=== PATIENT | female | born 2000 | race Two or more races ===

== ENCOUNTER 2019-10-25 19:16 | Emergency (ER) | payer OTHER ==
[~2019-10-25] VITALS: Ht 160 cm; Wt 54.4 kg
[2019-10-25] MEDS ORDERED: PRENATALES (19:46)
[2019-10-25] MEDS ORDERED: [UNRECOGNIZED DRUG - OTHER] (19:47)
[2019-10-25] MEDS ORDERED: MESALAMINE (19:48)
== END 2019-10-26 12:31 | disposition home or self-care (01) ==
LOC: ER 19:16
DX: O21.0 Mild hyperemesis gravidarum (principal); Z34.01 Encounter for supervision of normal first pregnancy, first trimester

== ENCOUNTER 2019-11-30 20:58 | Emergency (ER) | payer OTHER ==
[~2019-11-30] VITALS: Ht 160 cm; Wt 51.7 kg
[~2019-11-30 20:58] MED LIST: MESALAMINE; PRENATALES; [UNRECOGNIZED DRUG - OTHER]
[2019-12-01] MEDS ORDERED: DUI500 PO (09:00)
[2019-12-01] MEDS ORDERED: ONDANSETRON HCL8 MG SL (09:00)
== END 2019-12-01 09:23 | disposition home or self-care (01) ==
LOC: ER 20:58
DX: O21.0 Mild hyperemesis gravidarum (principal); Z34.01 Encounter for supervision of normal first pregnancy, first trimester

== ENCOUNTER 2019-12-07 15:15 | Inpatient (IN) | payer OTHER ==
[~2019-12-07] VITALS: Ht 160 cm; Wt 49.4 kg
[~2019-12-07 15:15] MED LIST changes: +DUI500 PO; +ONDANSETRON HCL8 MG SL
== END 2019-12-10 15:17 | disposition home or self-care (01) | DRG 833 ==
LOC: ER 15:15 → OB/GYN 12-08 11:29 → SEC-K 12-08 11:29 → OB/GYN 12-08 13:49
PROVIDERS: ADMIT Obstetrics & Gynecology Obstetrics; ATTEND Obstetrics & Gynecology Obstetrics
PROC: 4A1HXCZ Monitoring of Products of Conception, Cardiac Rate, External Approach (ICD-10-PCS; principal; 2019-12-08)
DX: O26.891 Other specified pregnancy related conditions, first trimester (principal); K52.89 Other specified noninfective gastroenteritis and colitis; O23.41 Unspecified infection of urinary tract in pregnancy, first trimester; Z20.828 Contact with and (suspected) exposure to other viral communicable diseases

== ENCOUNTER 2024-04-30 16:59 | Emergency (ER) | payer OTHER ==
[~2024-04-30] VITALS: Ht 160 cm; Wt 63.5 kg
[2024-04-30] MEDS ORDERED: 0.9 % SODIUM CHLORIDE 1,000 ML IV STA (17:47)
[2024-04-30] MEDS ORDERED: ONDANSETRON HCL 2 MG/ML VIAL IV STA (17:48)
[2024-04-30] MEDS ORDERED: ONDANSETRON HCL 2 MG/ML VIAL ONE (17:51)
[2024-04-30] MEDS ORDERED: FAMOTIDINE/PF 20 MG/2 ML VIAL ONE (18:09)
[2024-04-30] MEDS ORDERED: FAMOTIDINE/PF 20 MG/2 ML VIAL IV PUSH ONE (18:15)
[2024-04-30 19:24] LABS: CALCIUM 8.9 mg/dL (8.5-10.1); CREATININE SERUM 0.53 mg/dL (0.55-1.02); GFR 141.72; POTASSIUM 3.85 mEq/L (3.5-5.1)
[2024-04-30 19:26] LABS: PH,URINE 6.5 (5.0-8.0); URINE APPEARANCE Cloudy; URINE BILIRRUBIN Negative (NEGATIVE); URINE BLOOD Negative; URINE COLOR Yellow; URINE GLUCOSE Negative (NEGATIVE); URINE LEUKOCYTE Moderate; URINE NITRATE Negative; URINE PROTEIN Negative (NEGATIVE)
[2024-04-30 19:30] LABS: URINE BACTERIA 6533.6 uL (0.0-1933); URINE EPITHELIAL CELLS 53.8 uL (0.0-38.8); URINE RBC 6.3 uL (0.0-20.8); URINE WBC 149.9 uL (0.0-23.2)
[2024-04-30 19:32] LABS: URINE CAST 0.44 uL (0.0-1.40); URINE KETONE 40 (NEGATIVE)
[2024-04-30 20:19] LABS: HEMATOCRIT 33.7 % (36.0-45.00); HEMOGLOBIN 11.3 g/dL (12.0-15.00); MEAN CELL VOLUME 83.1 fL (80.00-100.00); MEAN CORPUSCULAR HEMOGLOBIN 27.9 pg (27.00-32.0); MEAN CORPUSCULAR HGB CONC 33.5 g/dl (32.0-36.0); PLATELET COUNT 331 K/uL (150-450); RED BLOOD COUNT 4.05 M/uL (4.00-6.00); RED CELL DISTRIBUTION WIDTH 13.7 % (11.5-14.5)
== END 2024-04-30 21:31 | disposition home or self-care (01) ==
LOC: ER 17:01
PROVIDERS: Emergency Medicine
DX: O99.611 Diseases of the digestive system complicating pregnancy, first trimester (principal); K92.89 Other specified diseases of the digestive system; Z3A.01 Less than 8 weeks gestation of pregnancy; K52.89 Other specified noninfective gastroenteritis and colitis; Z88.8 Allergy status to other drugs, medicaments and biological substances

== ENCOUNTER 2024-05-06 14:50 | Emergency (ER) | payer OTHER ==
[~2024-05-06] VITALS: Ht 160 cm; Wt 59.9 kg
[2024-05-06] MEDS ORDERED: FAMOtidine 10 MG/ML (4ML VIAL) IV ONE (16:30)
[2024-05-06] MEDS ORDERED: ONDANSETRON HCL 2 MG/ML VIAL IV ONE (16:30)
[2024-05-06] MEDS ORDERED: FAMOTIDINE/PF 20 MG/2 ML VIAL ONE (17:08)
[2024-05-06] MEDS ORDERED: ONDANSETRON HCL 2 MG/ML VIAL ONE (17:08)
[2024-05-06 18:36] LABS: HEMOGLOBIN 11.5 g/dL (12.0-15.00); MEAN CELL VOLUME 84.2 fL (80.00-100.00); MEAN CORPUSCULAR HEMOGLOBIN 29.3 pg (27.00-32.0); MEAN CORPUSCULAR HGB CONC 34.7 g/dl (32.0-36.0); PLATELET COUNT 382 K/uL (150-450); RED BLOOD COUNT 3.92 M/uL (4.00-6.00); RED CELL DISTRIBUTION WIDTH 13.6 % (11.5-14.5)
[2024-05-06 18:39] LABS: PH,URINE 6.5 (5.0-8.0); URINE APPEARANCE Clear; URINE BILIRRUBIN Negative (NEGATIVE); URINE BLOOD Negative; URINE COLOR Yellow; URINE GLUCOSE Negative (NEGATIVE); URINE KETONE Negative (NEGATIVE); URINE LEUKOCYTE Negative; URINE NITRATE Negative; URINE PROTEIN Negative (NEGATIVE)
[2024-05-06 18:44] LABS: URINE BACTERIA 477.3 uL (0.0-1933); URINE EPITHELIAL CELLS 9.3 uL (0.0-38.8); URINE RBC 4.5 uL (0.0-20.8)
[2024-05-06 18:50] LABS: URINE CAST 0.14 uL (0.0-1.40)
[2024-05-06] MEDS ORDERED: ZOFRAN8 MG PO (19:17)
== END 2024-05-06 19:27 | disposition home or self-care (01) ==
LOC: ER 14:52
PROVIDERS: General Practice
DX: O21.0 Mild hyperemesis gravidarum (principal); Z3A.01 Less than 8 weeks gestation of pregnancy; Z88.8 Allergy status to other drugs, medicaments and biological substances
CPT/HCPCS: 76817; 96365; 99284; J2405; J3490

== ENCOUNTER → 2024-10-11 14:02 | Outpatient (CLI) | payer OTHER ==
[~2024-10-11 14:02] MED LIST changes: +ZOFRAN8 MG PO
== END | disposition home or self-care (01) ==
LOC: PRENATAL 14:02
PROVIDERS: ATTEND Obstetrics & Gynecology Maternal & Fetal Medicine
DX: O44.00 Complete placenta previa NOS or without hemorrhage, unspecified trimester (principal); O36.8199 Decreased fetal movements, unspecified trimester, other fetus; O99.019 Anemia complicating pregnancy, unspecified trimester; Z3A.30 30 weeks gestation of pregnancy